=== PATIENT | male | born 1930 | race Caucasian/White ===

== ENCOUNTER 2018-06-04 23:11 | Observation (INO) | payer MEDICARE, OTHER ==
[~2018-06-04] VITALS: Ht 170.2 cm; Wt 63.6 kg
[2018-06-04] MEDS ORDERED: ASPIRIN 81M81 MG/TA2 PO (23:27)
[2018-06-04 23:47] LABS: BASO % 0.8 % (0.0-2.0); EOS % 0.8 % (0-4.0); GRAN # 3.2 (1.4-6.5); GRAN % 62.7 % (42.2-75.2); HEMATOCRIT 40.9 % (42.0-52.0); HEMOGLOBIN 13.8 g/dl (13.5-18.0); LYMPH # 0.8 (1.2-3.4); LYMPH % 15.7 % (20.0-51.0); MEAN CELL VOLUME 100 fl (80.0-100.0); MEAN CORPUSCULAR HEMOGLOBIN 34 pg (27.0-31.0); MEAN CORPUSCULAR HGB CONC 34 g/dl (33.0-37.0); MEAN PLATELET VOLUME 12.3 fl (7.4-10.4); MONO % 19.6 % (1.7-9.3); PLATELET COUNT 164 K/mm3 (130-400); RED BLOOD COUNT 4.09 M/mm3 (4.20-5.60); REDCELL DISTRIBUTION WIDTH-CV 13.8 % (11.5-14.5)
[2018-06-04] MEDS ORDERED: NAMENDA 10MG TA10 MG PO (23:50)
[2018-06-04 23:57] VITALS: BP 139/76; PULSE 63
[2018-06-05] MEDS ORDERED: SYMMETREL100 M1 PO (00:28)
[2018-06-05 00:59] LABS: ALANINE AMINOTRANSFERASE 22 U/L (21-72); ALBUMIN 3.5 gm/dL (3.5-5.0); ALKALINE PHOSPHATASE 84 U/L (50-136); ANION GAP 4 mmol/L (7-16); AST,SGOT 26 U/L (15-37); BILIRUBIN,TOTAL 0.5 mg/dL (0.0-1.0); BLOOD UREA NITROGEN 36 mg/dL (9-20); CALCIUM 8.9 mg/dL (8.4-10.2); CARBON DIOXIDE 26 mmol/L (22-30); CHLORIDE 106 mmol/L (98-107); GLUCOSE 98 mg/dL (74-106); POTASSIUM 4.7 mmol/L (3.4-5.0); SODIUM 136 mmol/L (137-145); TOTAL PROTEIN 6.4 gm/dL (6.4-8.2)
[2018-06-05 01:25] LABS: TROPONIN-I < 0.012 ng/mL (0.000-0.034)
[2018-06-05 03:40] VITALS: BP 155/69; PULSE 65
[2018-06-05 05:30] LABS: COLLECTION METHOD CLEAN CATCH
[2018-06-05 05:45] LABS: MUCOUS Present /lpf; PH 6 (5-8); SQUAMOUS EPITHELIAL None Seen /hpf; URINE APPEARANCE Clear; URINE BACTERIA None Seen /hpf; URINE BILIRUBIN Negative (NEGATIVE); URINE BLOOD Negative (NEGATIVE); URINE COLOR Yellow; URINE GLUCOSE Negative (NEGATIVE); URINE KETONE Trace (NEGATIVE); URINE LEUKOCYTE ESTERASE Negative (NEGATIVE); URINE NITRATE Negative (NEGATIVE); URINE PROTEIN(semi-quant) Negative (NEGATIVE); URINE UROBILINOGEN Negative (NEGATIVE)
[2018-06-05 07:50] VITALS: BP 177/86; PULSE 79; TEMP 98.7
[2018-06-05 07:54] LABS: BASO % 0.8 % (0.0-2.0); GRAN # 2.2 (1.4-6.5); HEMOGLOBIN 12.2 g/dl (13.5-18.0); LYMPH # 0.9 (1.2-3.4); LYMPH % 24.3 % (20.0-51.0); MEAN CELL VOLUME 98 fl (80.0-100.0); MEAN CORPUSCULAR HEMOGLOBIN 33 pg (27.0-31.0); MEAN CORPUSCULAR HGB CONC 34 g/dl (33.0-37.0); MONO # 0.6 (0.1-0.6); MONO % 15.4 % (1.7-9.3); PLATELET COUNT 137 K/mm3 (130-400); RED BLOOD COUNT 3.69 M/mm3 (4.20-5.60); REDCELL DISTRIBUTION WIDTH-CV 13.7 % (11.5-14.5)
[2018-06-05 07:57] LABS: HEMATOCRIT 36.2 % (42.0-52.0)
[2018-06-05 08:07] LABS: CALCIUM 8.7 mg/dL (8.4-10.2); CREATININE, serum 0.89 mg/dL (0.66-1.25)
[2018-06-05 08:26] VITALS: BP 177/86; PULSE 78; TEMP 98.7
[2018-06-05 17:59] VITALS: BP 129/65; PULSE 85; TEMP 98.1
[2018-06-05 19:17] VITALS: BP 125/48; PULSE 87; TEMP 97.7
[2018-06-06 00:17] VITALS: BP 116/47; PULSE 62
[2018-06-06 05:06] VITALS: BP 127/68; PULSE 68
[2018-06-06 06:03] LABS: BASO % 0.3 % (0.0-2.0); GRAN % 74.9 % (42.2-75.2); HEMOGLOBIN 12.3 g/dl (13.5-18.0); LYMPH # 0.8 (1.2-3.4); LYMPH % 11.5 % (20.0-51.0); MEAN CELL VOLUME 99 fl (80.0-100.0); MEAN CORPUSCULAR HEMOGLOBIN 33 pg (27.0-31.0); MEAN CORPUSCULAR HGB CONC 34 g/dl (33.0-37.0); MEAN PLATELET VOLUME 12.1 fl (7.4-10.4); MONO # 0.9 (0.1-0.6); PLATELET COUNT 135 K/mm3 (130-400); RED BLOOD COUNT 3.69 M/mm3 (4.20-5.60)
[2018-06-06 06:04] LABS: HEMATOCRIT 36.4 % (42.0-52.0)
[2018-06-06 06:19] LABS: CALCIUM 8.6 mg/dL (8.4-10.2); CREATININE, serum 0.86 mg/dL (0.66-1.25)
[2018-06-06 08:09] VITALS: BP 111/45; PULSE 61; TEMP 98
[2018-06-06 12:01] VITALS: BP 117/50; PULSE 78; TEMP 98.1
== END 2018-06-06 15:28 | disposition home or self-care (01) ==
LOC: COL.ER 23:11 → MEDICAL 06-05 02:16
PROVIDERS: Emergency Medicine; Nurse Practitioner Family; Physician Assistant
DX: R55 Syncope and collapse (principal); I10 Essential (primary) hypertension; E78.5 Hyperlipidemia, unspecified; I48.0 Paroxysmal atrial fibrillation; F03.90 Unspecified dementia, unspecified severity, without behavioral disturbance, psychotic disturbance, mood disturbance, and anxiety; Z79.82 Long term (current) use of aspirin; Z86.73 Personal history of transient ischemic attack (TIA), and cerebral infarction without residual deficits
CPT/HCPCS: A9284; A9585; G0378; G8978-GP; G8979-GP; J0610; J7030